=== PATIENT | female | born 1950 | race Caucasian/White ===

== ENCOUNTER 2019-02-28 19:42 | Emergency (ER) | payer OTHER ==
--- NOTE | 2019-02-28 20:29 | RAD REPORT ---
EXAM DESCRIPTION: RAD - Foot Left 3 View - 02/28/2019 8:19 pm CLINICAL HISTORY: Left Foot pain FINDINGS: No fracture or dislocation is seen. Bones are osteoporotic
--- NOTE | 2019-02-28 20:31 | RAD REPORT ---
EXAM DESCRIPTION: RAD - Hand Right 3 View - 02/28/2019 8:19 pm CLINICAL HISTORY: Right hand pain status post injury FINDINGS: No fracture or dislocation is seen. Bones are osteoporotic. 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
--- NOTE | 2019-02-28 21:01 | ER ---
Nurse's Notes [facility] Name: Pattie Whitehead Age: 68 yrs Sex: Female : 1950 Arrival Date: 02/28/2019 Time: 19:45 Bed 24 Private MD: out of town, doctor Diagnosis: Contusion of left lesser toe(s) without damage to nail;Pain in right hand Presentation: 02/28 19:47 Presenting complaint: Patient states: Last night I kicked my bed with my left foot and la1 hurt my left 4th and 5th digits, this morning I flicked a bug off my with my right hand and that is also hurting very badly. Transition of care: patient was not received from another setting of care. Onset of symptoms was February 28, 2019. Risk Assessment: Do you want to hurt yourself or someone else? Patient reports no desire to harm self or others. Initial Sepsis Screen: Does the patient meet any 2 criteria? No. Patient's initial sepsis screen is negative. Does the patient have a suspected source of infection? No. Patient's initial sepsis screen is negative. Care prior to arrival: None. 19:47 Method Of Arrival: Ambulatory la1 19:47 Acuity: CELENA 4 la1 Triage Assessment: 20:34 General: Appears in no apparent distress. comfortable, Behavior is calm, cooperative. mg2 Injury Description: pain. Historical: - Allergies: 19:49 Erythromycin; la1 19:49 Iodinated Contrast Media - IV Dye; la1 19:49 PENICILLINS; la1 19:49 SHELLFISH; la1 19:49 Sulfa (Sulfonamide Antibiotics); la1 - Home Meds: 20:22 aspirin 81 mg Oral TbEC 1 tab once daily [Active]; cetirizine 10 mg Oral tab 1 tab once mg2 daily [Active]; glipizide 5 mg Oral tab 1 tab once daily [Active]; losartan 50 mg Oral tab 1 tab once daily [Active]; magnesium oxide 250 mg Oral tab daily [Active]; metformin 500 mg Oral tab 2 tabs 2 times per day [Active]; simvastatin 10 mg Oral tab 1 tab once daily [Active]; - PMHx: 19:49 Diabetes - NIDDM; fatty liver; Fibromyalgia; Kidney stones; Pinched nerve (neck); Sleep la1 Apnea; - Immunization history:: Adult Immunizations up to date. - Social history:: Smoking status: Patient/guardian denies using tobacco. - Ebola Screening: : No symptoms or risks identified at this time. Screenin:11 Abuse screen: Denies threats or abuse. Denies injuries from another. Nutritional aj screening: No deficits noted. Tuberculosis screening: No symptoms or risk factors identified. Fall Risk None identified. Assessment: 20:02 General: Appears in no apparent distress. comfortable, Behavior is calm, cooperative, aj appropriate for age. Pain: Complains of pain in left middle fingernail and left fifth toe. Neuro: Level of Consciousness is awake, alert, obeys commands, Oriented to person, place, time, situation, Appropriate for age. Respiratory: Airway is patent Respiratory effort is even, unlabored, Respiratory pattern is regular, symmetrical. Derm: Skin is intact, is healthy with good turgor, Skin is pink, warm \T\ dry. normal. Musculoskeletal: Reports pain in left fifth toe. 20:11 Reassessment: Patient appears in no apparent distress at this time. No changes from aj previously documented assessment. Patient and/or family updated on plan of care and expected duration. Pain level reassessed. Patient is alert/active/playful, equal unlabored respirations, skin warm/dry/pink. Patient states feeling better. Patient states symptoms have improved. 20:57 Reassessment: splint checked by provider prior to discharge. mg2 Vital Signs: 19:48 BP 140 / 75; Pulse 84; Resp 18; Temp 97.1; Pulse Ox 100% on R/A; Weight 106.59 kg; la1 Height 5 ft. 6 in. (167.64 cm); 21:06 BP 135 / 78; Pulse 80; Resp 18; Pulse Ox 100% on R/A; Pain 0/10; mg2 19:48 Body Mass Index 37.93 (106.59 kg, 167.64 cm) la1 ED Course: 19:45 Patient arrived in ED. mr 19:46 out of town, doctor is Private Physician. mr 19:48 Triage completed. la1 19:49 Arm band placed on left wrist. la1 19:50 Mandeep Craig NP is PHCP. pm1 19:50 Thaddeus Lovelace MD is Attending Physician. pm1 19:50 Jillian Verdugo, GENE is Primary Nurse. aj 20:11 No provider procedures requiring assistance completed. Patient did not have IV access aj during this emergency room visit. 20:19 Hand Right 3 View XRAY In Process Unspecified. EDMS 20:19 Foot Left 3 View XRAY In Process Unspecified. EDMS 20:22 Patient has correct armband on for positive identification. mg2 20:34 Elmo tape left 4th and 5th toe. mg2 20:56 Aluminum finger splint applied to 2nd and 3rd digit. mg2 20:59 Atif Auguste MD is Referral Physician. pm1 Administered Medications: No medications were administered Outcome: 21:00 Discharge ordered by MD. pm1 21:06 Discharged to home ambulatory, with friend. mg2 21:06 Condition: stable 21:06 Discharge instructions given to patient, Instructed on discharge instructions, follow up and referral plans. medication usage, Demonstrated understanding of instructions, follow-up care, medications, splint care, Prescriptions given X 1. 21:07 Patient left the ED. mg2 Signatures: Dispatcher [employer] EDJillian Ayoub, RN Cadence Botello Lee RN RN la1 Mandeep Craig, NITA CRM SPECIALIST pm1 Martin Morgan RN RN mg2 Corrections: (The following items were deleted from the chart) 20:12 20:12 Discharged to home with family, aj aj 20:12 20:12 Condition: good aj aj 20:12 20:12 Discharge instructions given to family, Instructed on discharge instructions, aj follow up and referral plans. medication usage, Demonstrated understanding of instructions, follow-up care, medications, aj
--- NOTE | 2019-02-28 21:01 | EDPHYS ---
Physician Documentation [facility] Name: Pattie Whitehead Age: 68 yrs Sex: Female : 1950 Arrival Date: 02/28/2019 Time: 19:45 Bed 24 Private MD: out of town, doctor ED Physician Thaddeus Lovelace HPI: 02/28 20:30 This 68 yrs old Female presents to ER via Ambulatory with complaints of Toe pm1 Injury, Finger Injury. 20:30 The patient presents with pain, dislocation. The complaints affect the right third MIP pm1 and left fifth toe. Context: The problem was sustained at home, resulted from Stubbed left fifth toe last night on bed post and injured right third MIP by flicking a bug off her shirt today, the patient can fully bear weight, the patient is able to ambulate, Problem is a result from a previous injury: No. Modifying factors: The symptoms are alleviated by nothing. the symptoms are aggravated by movement. Associated signs and symptoms: Pertinent negatives calf tenderness, numbness, tingling. Treatment prior to arrival includes: self reduced left 5th toe yesterday and vikram tape. Severity of symptoms: in the emergency department the symptoms have improved. The patient has not experienced similar symptoms in the past. The patient has not recently seen a physician. Historical: - Allergies: 19:49 Erythromycin; la1 19:49 Iodinated Contrast Media - IV Dye; la1 19:49 PENICILLINS; la1 19:49 SHELLFISH; la1 19:49 Sulfa (Sulfonamide Antibiotics); la1 - Home Meds: 20:22 aspirin 81 mg Oral TbEC 1 tab once daily [Active]; cetirizine 10 mg Oral tab 1 tab once mg2 daily [Active]; glipizide 5 mg Oral tab 1 tab once daily [Active]; losartan 50 mg Oral tab 1 tab once daily [Active]; magnesium oxide 250 mg Oral tab daily [Active]; metformin 500 mg Oral tab 2 tabs 2 times per day [Active]; simvastatin 10 mg Oral tab 1 tab once daily [Active]; - PMHx: 19:49 Diabetes - NIDDM; fatty liver; Fibromyalgia; Kidney stones; Pinched nerve (neck); Sleep la1 Apnea; - Immunization history:: Adult Immunizations up to date. - Social history:: Smoking status: Patient/guardian denies using tobacco. - Ebola Screening: : No symptoms or risks identified at this time. ROS: 20:30 Constitutional: Negative for fever, chills, and weight loss, Eyes: Negative for injury, pm1 pain, redness, and discharge, ENT: Negative for injury, pain, and discharge, Neck: Negative for injury, pain, and swelling, Cardiovascular: Negative for chest pain, palpitations, and edema, Respiratory: Negative for shortness of breath, cough, wheezing, and pleuritic chest pain, Abdomen/GI: Negative for abdominal pain, nausea, vomiting, diarrhea, and constipation, Back: Negative for injury and pain, : Negative for injury, bleeding, discharge, and swelling. 20:30 Skin: Negative for injury, rash, and discoloration, Neuro: Negative for headache, weakness, numbness, tingling, and seizure. 20:30 MS/extremity: Positive for pain, of the left fifth toe and right middle MIP, Negative for decreased range of motion. Exam: 20:30 Constitutional: This is a well developed, well nourished patient who is awake, alert, pm1 and in no acute distress. Head/Face: Normocephalic, atraumatic. Eyes: Pupils equal round and reactive to light, extra-ocular motions intact. Lids and lashes normal. Conjunctiva and sclera are non-icteric and not injected. Cornea within normal limits. Periorbital areas with no swelling, redness, or edema. ENT: Nares patent. No nasal discharge, no septal abnormalities noted. Tympanic membranes are normal and external auditory canals are clear. Oropharynx with no redness, swelling, or masses, exudates, or evidence of obstruction, uvula midline. Mucous membranes moist. Neck: Trachea midline, no thyromegaly or masses palpated, and no cervical lymphadenopathy. Supple, full range of motion without nuchal rigidity, or vertebral point tenderness. No Meningismus. Chest/axilla: Normal chest wall appearance and motion. Nontender with no deformity. No lesions are appreciated. Cardiovascular: Regular rate and rhythm with a normal S1 and S2. No gallops, murmurs, or rubs. Normal PMI, no JVD. No pulse deficits. Respiratory: Lungs have equal breath sounds bilaterally, clear to auscultation and percussion. No rales, rhonchi or wheezes noted. No increased work of breathing, no retractions or nasal flaring. Abdomen/GI: Soft, non-tender, with normal bowel sounds. No distension or tympany. No guarding or rebound. No evidence of tenderness throughout. Back: No spinal tenderness. No costovertebral tenderness. Full range of motion. Skin: Warm, dry with normal turgor. Normal color with no rashes, no lesions, and no evidence of cellulitis. 20:30 Musculoskeletal/extremity: Extremities: grossly normal except: noted in the dorsal aspect of MIP of right middle finger: pain, swelling, tenderness, noted in the left fifth toe: swelling, tenderness, no evidence of deformity, Circulation is intact in all extremities. Sensation intact. 20:30 Neuro: Orientation: is normal, Motor: is normal, moves all fours. Vital Signs: 19:48 BP 140 / 75; Pulse 84; Resp 18; Temp 97.1; Pulse Ox 100% on R/A; Weight 106.59 kg; la1 Height 5 ft. 6 in. (167.64 cm); 21:06 BP 135 / 78; Pulse 80; Resp 18; Pulse Ox 100% on R/A; Pain 0/10; mg2 19:48 Body Mass Index 37.93 (106.59 kg, 167.64 cm) la1 Procedures: 22:00 Splinting: Splint applied to right middle finger using finger splint, applied by nurse. pm1 Examined by me, post splint application: neurovascular intact, 2+ distal pulses palpable, brisk capillary refill noted, Patient tolerated well. MDM: 19:50 Patient medically screened. pm1 20:56 Data reviewed: vital signs. Data interpreted: Pulse oximetry: on room air is 100 %. pm1 Interpretation: normal. Counseling: I had a detailed discussion with the patient and/or guardian regarding: the historical points, exam findings, and any diagnostic results supporting the discharge/admit diagnosis, radiology results, to return to the emergency department if symptoms worsen or persist or if there are any questions or concerns that arise at home. 02/28 19:54 Order name: Hand Right 3 View XRAY; Complete Time: 20:41 pm1 02/28 19:54 Order name: Foot Left 3 View XRAY; Complete Time: 20:41 pm1 02/28 20:23 Order name: [facility]: Vikram tape L 4th and 5th toe; Complete Time: 20:33 pm1 Administered Medications: No medications were administered Disposition: 02/28/19 21:00 Discharged to Home. Impression: Contusion of left lesser toe(s) without damage to nail, Pain in right hand. - Condition is Stable. - Discharge Instructions: Contusion, Finger Sprain, Adult. - Prescriptions for Tramadol 50 mg Oral Tablet - take 1 tablet by ORAL route every 8 hours as needed; 12 tablet. - Medication Reconciliation Form, Thank You Letter, Antibiotic Education, Prescription Opioid Use form. - Follow up: Emergency Department; When: As needed; Reason: Worsening of condition. Follow up: Private Physician; When: 2 - 3 days; Reason: Recheck today's complaints, Continuance of care, Re-evaluation by your physician. Follow up: Atif Auguste MD; When: 2 - 3 days; Reason: Recheck today's complaints, Continuance of care, Re-evaluation by your physician. - Problem is new. - Symptoms have improved. Addendum: 03/03/2019 11:12 Co-signature as Attending Physician, Thaddeus Lovelace MD I agree with the assessment and c rodríguez plan of care. Signatures: Dispatcher [employer] EDThaddeus Kulkarni MD MD cha Attema, Lee RN RN la1 Mandeep Craig, NITA DRUG ABUSE PROGRAM COORDINATOR pm1 Martin Morgan RN RN mg2 Corrections: (The following items were deleted from the chart) 02/28 20:56 20:23 Ortho shoe ordered. pm1 mg2 21:07 21:00 02/28/2019 21:00 Discharged to Home. Impression: Contusion of left lesser toe(s) mg2 without damage to nail; Pain in right hand. Condition is Stable. Forms are Medication Reconciliation Form, Thank You Letter, Antibiotic Education, Prescription Opioid Use. Follow up: Emergency Department; When: As needed; Reason: Worsening of condition. Follow up: Private Physician; When: 2 - 3 days; Reason: Recheck today's complaints, Continuance of care, Re-evaluation by your physician. Follow up: Atif Auguste; When: 2 - 3 days; Reason: Recheck today's complaints, Continuance of care, Re-evaluation by your physician. Problem is new. Symptoms have improved. pm1
== END 2019-02-28 21:07 | disposition home or self-care (01) ==
LOC: ER 19:42
DX: S90.122A Contusion of left lesser toe(s) without damage to nail, initial encounter (principal); W22.8XXA Striking against or struck by other objects, initial encounter; M79.641 Pain in right hand; E11.9 Type 2 diabetes mellitus without complications; K76.0 Fatty (change of) liver, not elsewhere classified; Z79.84 Long term (current) use of oral hypoglycemic drugs; Z79.82 Long term (current) use of aspirin; Z88.2 Allergy status to sulfonamides; Z88.1 Allergy status to other antibiotic agents; Z91.041 Radiographic dye allergy status; Z88.0 Allergy status to penicillin; Z91.013 Allergy to seafood
CPT/HCPCS: 99283